=== PATIENT | male | born 2000 | race Caucasian/White ===

== ENCOUNTER 2021-05-23 10:59 | Emergency (ER) | payer SELFPAY ==
--- OUTSIDE RECORDS SUMMARY | 2021-05-23 11:03 | XMS REPORT | Continuity of Care Document ---
:2000 Author Organization [facility] t Address [address] [place] [address] Care Team Providers Name Role Phone Paulette PAREDES Attending Clinician Priya WANG Attending Clinician Unavailable Problems This patient has no known problems. Allergies, Adverse Reactions, Alerts Allergy Allergy Status Severity Reaction(s) Onset Inactive Treating Comm ents Source Name Type Date Date Clinician NO KNOWN Drug Active Univers ALLERGIE Class [facility] Medications This patient has no known medications. Procedures This patient has no known procedures. Encounters Start End Encounter Admission Attending Care Care Encounter Source Date/Time Date/Time Type Type Clinicians Facility Department ID 2020-06-02 2020-06-02 Outpatient R [facility] [id number] Univers 15:00:00 15:00:00 [id number] [facility] 2020-05-30 2020-05-30 Outpatient R [facility] [id number] Univers 17:00:00 17:00:00 [id number] [facility] 2020-05-13 2020-05-13 Outpatient R REGGIE [facility] [id number] Univers 10:00:00 10:00:00 SENDIL [id number] [facility] 2020-05-13 2020-05-13 Outpatient R REGGIE [facility] [id number] Univers 10:00:00 10:00:00 SENDIL [facility] 2020-05-10 2020-05-10 Outpatient Kristal WANG [facility] [id number] Univers 18:40:00 18:40:00 ROCHELLE [facility] Results This patient has no known results.
--- NOTE | 2021-05-23 12:36 | RAD REPORT ---
EXAM DESCRIPTION: RAD - Foot Left 3 View - 05/23/2021 12:29 pm CLINICAL HISTORY: PAIN COMPARISON: No comparisons FINDINGS: No acute fracture or dislocation is seen. Tiny calcaneal spurs.
--- NOTE | 2021-05-23 15:15 | EDPHYS ---
Physician Documentation [facility] Name: Jesse Araujo Age: 21 yrs Sex: Male : 2000 Arrival Date: 05/23/2021 Time: 11:03 Bed DIS4 Private MD: ED Physician Rocky Werner HPI: 05/23 15:22 This 21 yrs old Male presents to ER via Ambulatory with complaints of Foot Pain. kb 15:22 The patient has not experienced similar symptoms in the past. The patient has not kb recently seen a physician. 15:22 The patient presents with an injury, pain. The complaints affect the left foot. kb Context: The problem was sustained at home, resulted from an unknown cause, the patient can fully bear weight, the patient is not able to ambulate. Onset: The symptoms/episode began/occurred 3 day(s) ago. Modifying factors: The symptoms are alleviated by nothing, the symptoms are aggravated by weight bearing, movement. Associated signs and symptoms: The patient has no apparent associated signs or symptoms. Severity of symptoms: At their worst the symptoms were mild, in the emergency department the symptoms are unchanged. Pt states he went to [place] over the weekend, took a nap when he got home on Saturday and had left foot pain when he woke up. States he doesn't remember injuring his foot. Historical: - Allergies: 11:32 No Known Allergies; ap3 - Home Meds: 11:32 None [Active]; ap3 - PMHx: 11:32 None; ap3 - Immunization history:: Client reports having NOT received the Covid vaccine. Last tetanus immunization: unknown, Flu vaccine is not up to date. - Social history:: Smoking status: Reported history of juuling and/or vaping. Patient uses alcohol, occasionally. ROS: 15:20 Constitutional: Negative for fever, chills, and weight loss. kb 15:20 MS/extremity: Positive for pain, tenderness, of the dorsum of left foot. 15:20 All other systems are negative. Exam: 15:20 Constitutional: This is a well developed, well nourished patient who is awake, alert, kb and in no acute distress. Head/Face: Normocephalic, atraumatic. ENT: Moist Mucous membranes Respiratory: Respirations even and unlabored. No increased work of breathing. Talking in full sentences Skin: Warm, dry with normal turgor. Normal color. Neuro: Awake and alert, GCS 15, oriented to person, place, time, and situation. Moves all extremities. Normal gait. Psych: Awake, alert, with orientation to person, place and time. Behavior, mood, and affect are within normal limits. 15:20 Musculoskeletal/extremity: Extremities: grossly normal except: noted in the dorsum of left foot: pain, tenderness, ROM: intact in all extremities, Circulation is intact in all extremities. Sensation intact. Weight bearing: able to fully bear weight. Vital Signs: 11:29 BP 130 / 88; Pulse 68; Resp 18; Temp 99; Pulse Ox 99% ; Weight 104.33 kg; Height 5 ft. ap3 8 in. (172.72 cm); Pain 7/10; 11:29 Body Mass Index 34.97 (104.33 kg, 172.72 cm) ap3 MDM: 15:05 Patient medically screened. kb 15:18 Data reviewed: vital signs, nurses notes. Data interpreted: Pulse oximetry: on room air kb is 99 %. Interpretation: normal. Counseling: I had a detailed discussion with the patient and/or guardian regarding: the historical points, exam findings, and any diagnostic results supporting the discharge/admit diagnosis, radiology results, the need for outpatient follow up, a family practitioner, to return to the emergency department if symptoms worsen or persist or if there are any questions or concerns that arise at home. 05/23 11:32 Order name: Foot Left 3 View XRAY; Complete Time: 12:40 kb Administered Medications: No medications were administered Disposition Summary: 05/23/21 15:14 Discharge Ordered Location: Home kb Condition: Stable kb Diagnosis - Other sprain of left foot kb Followup: kb - With: Emergency Department - When: As needed - Reason: Worsening of condition Followup: kb - With: Private Physician - When: 2 - 3 days - Reason: Recheck today's complaints, Continuance of care, Re-evaluation by your physician Discharge Instructions: - Discharge Summary Sheet kb - Foot Sprain kb Forms: - Medication Reconciliation Form kb - Work release form kb - Thank You Letter kb - Antibiotic Education kb - Prescription Opioid Use kb Prescriptions: - Cyclobenzaprine 10 mg Oral Tablet - take 1 tablet by ORAL route every 8 hours As needed; 12 tablet; Refills: 0, kb Product Selection Permitted - Diclofenac Sodium 75 mg Oral tablet,delayed release (DR/EC) - take 1 tablet by ORAL route 2 times per day As needed; 30 tablet; Refills: 0, kb Product Selection Permitted Signatures: Dispatcher [employer] Ania Garcia, Corazon Kingston, RN RN ap3
--- NOTE | 2021-05-23 15:15 | ER ---
Nurse's Notes [facility] Name: Jesse Araujo Age: 21 yrs Sex: Male : 2000 Arrival Date: 05/23/2021 Time: 11:03 Bed DIS4 Private MD: Diagnosis: Other sprain of left foot Presentation: 05/23 11:29 Chief complaint: Patient states: he attended [facility] over the weekend, and when he ap3 woke up Saturday morning, his left foot was sore and felt stiff. The patient reports having putting the injured foot into some warm water in attempt to get relief, however the pain has progressively gotten worse. Patient reports the pain is at its worst when he applies weight to the injured foot. Coronavirus screen: At this time, the client does not indicate any symptoms associated with coronavirus-19. Ebola Screen: No symptoms or risks identified at this time. Initial Sepsis Screen: Does the patient meet any 2 criteria? No. Patient's initial sepsis screen is negative. Does the patient have a suspected source of infection? No. Patient's initial sepsis screen is negative. Risk Assessment: Do you want to hurt yourself or someone else? Patient reports no desire to harm self or others. Onset of symptoms was May 22, 2021. 11:29 Method Of Arrival: Ambulatory ap3 11:29 Acuity: CHRISTIAN 4 ap3 Triage Assessment: 11:33 General: Appears in no apparent distress. Behavior is calm, cooperative, appropriate ap3 for age. Pain: Complains of pain in left foot Pain currently is 7 out of 10 on a pain scale. Alleviated by rest, Aggravated by increased activity, repositioning, weight bearing. Neuro: Level of Consciousness is awake, alert, obeys commands, Oriented to person, place, time, situation, Appropriate for age Gait is unsteady. Cardiovascular: Patient's skin is warm and dry. Respiratory: Airway is patent Respiratory effort is even, unlabored, Respiratory pattern is regular, symmetrical. Musculoskeletal: Swelling present in dorsum of left foot. Historical: - Allergies: 11:32 No Known Allergies; ap3 - Home Meds: 11:32 None [Active]; ap3 - PMHx: 11:32 None; ap3 - Immunization history:: Client reports having NOT received the Covid vaccine. Last tetanus immunization: unknown, Flu vaccine is not up to date. - Social history:: Smoking status: Reported history of juuling and/or vaping. Patient uses alcohol, occasionally. Screenin:34 Abuse screen: Denies threats or abuse. Nutritional screening: No deficits noted. ap3 Tuberculosis screening: No symptoms or risk factors identified. Fall Risk None identified. No fall in past 12 months (0 pts). Vital Signs: 11:29 BP 130 / 88; Pulse 68; Resp 18; Temp 99; Pulse Ox 99% ; Weight 104.33 kg; Height 5 ft. ap3 8 in. (172.72 cm); Pain 7/10; 11:29 Body Mass Index 34.97 (104.33 kg, 172.72 cm) ap3 ED Course: 11:03 Patient arrived in ED. mr 11:20 Ania Peñaloza FNP-C is PHCP. kb 11:20 Rocky Werner MD is Attending Physician. kb 11:32 Triage completed. ap3 11:34 Arm band placed on right wrist. ap3 12:29 Foot Left 3 View XRAY In Process Unspecified. EDMS Administered Medications: No medications were administered Outcome: 15:14 Discharge ordered by . kb 15:25 Patient left the ED. mb7 Signatures: Dispatcher [employer] EDMS Ania Peñaloza FNP-C FNP-Ckb Rivera, Mary mr Prokisch, Amanda, RN RN ap3 Raquel Licona mb7
[2021-05-23 16:19] VITALS: BP 130/88; TEMP 99; O2SAT 99
== END 2021-05-23 15:25 | disposition home or self-care (01) ==
LOC: ER 10:59
DX: S93.692A Other sprain of left foot, initial encounter (principal)
CPT/HCPCS: 99282

== ENCOUNTER 2023-02-26 08:36 | Emergency (ER) | payer OTHER, SELFPAY ==
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
--- OUTSIDE RECORDS SUMMARY | 2023-02-26 09:07 | XMS REPORT | Continuity of Care Document ---
:2000 Author Organization [facility] t Address [address] [place] [address] Care Team Providers Name Role Phone SRAVANTHI PAREDES Attending Clinician Unavailable ROCHELLE WANG Attending Clinician Unavailable Problems This patient has no known problems. Allergies, Adverse Reactions, Alerts Allergy Allergy Status Severity Reaction(s) Onset Inactive Treating Comm ents Source Name Type Date Date Clinician NO KNOWN Drug Active Univers ALLERGIE Class [facility] Medications This patient has no known medications. Procedures This patient has no known procedures. Encounters Start End Encounter Admission Attending Care Care Encounter Source Date/Time Date/Time Type Type Clinicians Facility Department ID 2020-05-13 2020-05-13 Outpatient Kristal PAREDES [facility] [id number] Univers 10:00:00 10:00:[address] [facility] [place] [place] 2020-05-10 2020-05-10 Outpatient Kristal WANG [facility] [id number] Univers 18:40:00 18:40:[address] [facility] [place] [place] Results This patient has no known results.
[2023-02-26 09:59] VITALS: BP 130/86; O2SAT 97
== END 2023-02-26 09:47 | disposition home or self-care (01) ==
LOC: ER 08:36
DX: M54.6 Pain in thoracic spine (principal); V49.49XA Driver injured in collision with other motor vehicles in traffic accident, initial encounter
CPT/HCPCS: 99283